=== PATIENT | male | born 1970 | race Caucasian/White ===

== ENCOUNTER 2021-09-18 09:53 | Outpatient (REF) | payer SELFPAY ==
[2021-09-18 10:21] LABS: COVID-19 Test Negative (Negative)
== END 2021-09-18 09:54 | disposition home or self-care (01) ==
LOC: HO.LAB 09:53
PROVIDERS: Visit Provider Internal Medicine
DX: Z20.822 Contact with and (suspected) exposure to COVID-19 (principal)
CPT/HCPCS: 87635; C9803